=== PATIENT | male | born 1935 | race Caucasian/White ===

== ENCOUNTER 2017-09-18 09:34 | Inpatient (IN) | payer MEDICARE, MEDICAID ==
[~2017-09-18] VITALS: Ht 172.7 cm; Wt 79.4 kg
--- NOTE | 2017-09-18 09:27 | Emergency Room Report ---
History of Present Illness General Chief Complaint: Dizziness Source: Patient, EMS Present Illness HPI Patient is 81-year-old male who presented after near syncopal episode while at [employer]. The patient poorly did not eat breakfast. He had prior history of hypertension and been taking lisinopril as well as glyburide. The patient had adequate blood sugar when checked by EMS. Patient denies prior cardiac disease. The patient was noted be orthostatic by EMS and was started on IV fluids.The patient denies any episodes recent vomiting or diarrhea. He denies any abdominal pain at this time. He denies any chest discomfort.He reports not eating breakfast.The patient was standing at the time of feeling dizzy. The patient had been taking his blood pressure medications included lisinopril as well as atenolol Allergies: Coded Allergies: No Known Allergies (Verified , 02/27/06) Patient History Past Medical History: see triage record Reviewed Nursing Documentation: PMH: Agreed; PSxH: Agreed Review of Systems All Other Systems: negative except mentioned in HPI Physical Exam Vital Signs Date Time Temp Pulse Resp B/P (MAP) Pulse Ox O2 Delivery O2 Flow Rate FiO2 09/18/17 09:19 97.6 59 18 114/68 100 Room Air 97.5 Sp02 EP Interpretation: reviewed, normal General Appearance: normal inspection, well appearing, no apparent distress, alert, GCS 15, non-toxic, Chronically Ill Head: atraumatic ENT: normal ENT inspection, hearing grossly normal, normal voice Neck: normal inspection, full range of motion, supple, no bony tend Respiratory: normal inspection, lungs clear, normal breath sounds, no respiratory distress, no retraction, no wheezing Cardiovascular #1: regular rate, rhythm, no edema Gastrointestinal: normal inspection, normal bowel sounds, non tender, soft, no guarding, no hernia Genitourinary: no CVA tenderness Musculoskeletal: normal inspection, back normal, normal range of motion Neurologic: normal inspection, alert, oriented x3, responsive, priming mixture carrier III-XII nml as tested, speech normal Psychiatric: normal inspection, judgement/insight normal, mood/affect normal Skin: normal inspection, normal color, no rash Medical Decision Making Diagnostic Impression: Primary Impression: Syncope, near Additional Impressions: Hx of CABG Diabetes Dehydration, mild ER Course Patient presented for near syncope. Differential diagnosis included but was not limited to arrhythmia, orthostatic hypotension, hypovolemia, vasovagal, anemia among others.Because of complexity of patient's case laboratory testing and imaging studies were ordered. EKG interpreted by me showed normal sinus rhythm with a rate of 60 with right bundle-branch block with lateral T-wave inversion. The patient was noted to have CABG approximate 9 years ago.The patient was started on IV fluids. The patient tolerated by mouth food with the some improvement.The patient was discussed with Dr. Jose Petit for inpatient management due to primary care physician Labs Test 09/18/17 09:40 White Blood Count 7.8 K/UL (4.8-10.8) Red Blood Count 4.58 M/UL (4.70-6.10) Hemoglobin 14.3 G/DL (14.2-18.0) Hematocrit 41.7 % (42.0-52.0) Mean Corpuscular Volume 91 FL (80-99) Mean Corpuscular Hemoglobin 31.1 PG (27.0-31.0) Mean Corpuscular Hemoglobin Concent 34.2 G/DL (32.0-36.0) Red Cell Distribution Width 11.2 % (11.6-14.8) Platelet Count 170 K/UL (150-450) Mean Platelet Volume 5.8 FL (6.5-10.1) Neutrophils (%) (Auto) 73.1 % (45.0-75.0) Lymphocytes (%) (Auto) 17.8 % (20.0-45.0) Monocytes (%) (Auto) 6.5 % (1.0-10.0) Eosinophils (%) (Auto) 1.3 % (0.0-3.0) Basophils (%) (Auto) 1.3 % (0.0-2.0) Prothrombin Time 10.4 SEC (9.30-11.50) Prothromb Time International Ratio 1.0 (0.9-1.1) Activated Partial Thromboplast Time 23 SEC (23-33) Sodium Level 138 MMOL/L (136-145) Potassium Level 4.4 MMOL/L (3.5-5.1) Chloride Level 104 MMOL/L (98-107) Carbon Dioxide Level 24 MMOL/L (21-32) Anion Gap 10 mmol/L (5-15) Blood Urea Nitrogen 19 mg/dL (7-18) Creatinine 1.1 MG/DL (0.55-1.30) Estimat Glomerular Filtration Rate mL/min (>60) Glucose Level 175 MG/DL (74-106) Calcium Level 8.9 MG/DL (8.5-10.1) Total Bilirubin 0.6 MG/DL (0.2-1.0) Aspartate Amino Transf (AST/SGOT) 13 U/L (15-37) Alanine Aminotransferase (ALT/SGPT) 18 U/L (12-78) Alkaline Phosphatase 61 U/L (46-116) Total Creatine Kinase 70 U/L (26-308) Creatine Kinase MB 1.1 NG/ML (0.0-3.6) Creatine Kinase MB Relative Index 1.5 Troponin I 0.007 ng/mL (0.000-0.056) Total Protein 7.2 G/DL (6.4-8.2) Albumin 3.5 G/DL (3.4-5.0) Globulin 3.7 g/dL Albumin/Globulin Ratio 0.9 (1.0-2.7) EKG Diagnostic Results Rate: normal Rhythm: NSR ST Segments: other - twave inversion lateral Last Vital Signs Date Time Temp Pulse Resp B/P (MAP) Pulse Ox O2 Delivery O2 Flow Rate FiO2 09/18/17 09:19 97.6 59 18 114/68 100 Room Air 97.5 Status: improved Disposition: ADMITTED INPATIENT Condition: Anibal José MD September 18, 2017 09:27
[2017-09-18] MEDS ORDERED: LISINOPRIL5 MG ORAL (09:38)
[2017-09-18 09:57] VITALS: BP 156/69
[2017-09-18 10:27] LABS: BASOPHILS % (AUTO) 1.3 % (0.0-2.0); EOSINOPHILS % (AUTO) 1.3 % (0.0-3.0); HEMATOCRIT 41.7 % (42.0-52.0); HEMOGLOBIN 14.3 G/DL (14.2-18.0); LYMPHOCYTES % (AUTO) 17.8 % (20.0-45.0); MEAN CORPUSCULAR VOLUME 91 FL (80-99); MONOCYTES % (AUTO) 6.5 % (1.0-10.0); NEUTROPHILS % (AUTO) 73.1 % (45.0-75.0); PLATELET COUNT 170 K/UL (150-450); RED BLOOD COUNT 4.58 M/UL (4.70-6.10); RED CELL DISTRIBUTION WIDTH 11.2 % (11.6-14.8); WHITE BLOOD COUNT 7.8 K/UL (4.8-10.8)
[2017-09-18 10:35] LABS: ANION GAP 10 mmol/L (5-15); BLOOD UREA NITROGEN 19 mg/dL (7-18); CALCIUM 8.9 MG/DL (8.5-10.1); CARBON DIOXIDE 24 MMOL/L (21-32); CHLORIDE 104 MMOL/L (98-107); CREATININE 1.1 MG/DL (0.55-1.30); POTASSIUM 4.4 MMOL/L (3.5-5.1); SODIUM 138 MMOL/L (136-145)
[2017-09-18 10:49] LABS: ALANINE AMINOTRANSFERASE 18 U/L (12-78); ALBUMIN 3.5 G/DL (3.4-5.0); ALBUMIN/GLOBULIN RATIO 0.9 (1.0-2.7); ALKALINE PHOSPHATASE 61 U/L (46-116); ASPARTATE AMINO TRANSFERASE 13 U/L (15-37); BILIRUBIN,TOTAL 0.6 MG/DL (0.2-1.0); CKMB 1.1 NG/ML (0.0-3.6); CREATINE KINASE 70 U/L (26-308)
[2017-09-18 11:16] LABS: APPEARANCE,URINE SLIGHTLY CLOUDY; BILIRUBIN, URINE NEGATIVE (NEGATIVE); COLOR,URINE PALE YELLOW; GLUCOSE, URINE (UA) NEGATIVE (NEGATIVE); KETONES,URINE 1+ (NEGATIVE); LEUKOCYTE ESTERASE ,URINE 3+ (NEGATIVE); NITRITE,URINE POSITIVE (NEGATIVE); PH,URINE 7 (4.5-8.0); PROTEIN,URINE 1+ (NEGATIVE); UROBILINOGEN,URINE NORMAL MG/DL (0.0-1.0)
[2017-09-18] MEDS ORDERED: cefTRIAXone 1 GM in NS 55 ML IVPB ONE (11:30)
[2017-09-18 11:56] VITALS: BP 156/82
[2017-09-18] MEDS: Piperacillin/Tazobactam 3.375 GM in NS 110 ML IVPB SCH ×2 (15:54→15:55)
[2017-09-18] MEDS: NovoLOG Insulin Flexpen SUBQ SCH ×2 (17:00→21:00)
[2017-09-18 20:00] VITALS: BP 149/75
[2017-09-18] MEDS: Heparin 5000 units/ml inj SUBQ SCH (21:00)
[2017-09-19] VITALS: BP 156/83
[2017-09-19 04:00] VITALS: BP 181/86
[2017-09-19] MEDS: NovoLOG Insulin Flexpen SUBQ SCH ×4 (06:30→21:00)
[2017-09-19 08:00] VITALS: BP 179/93
[2017-09-19] MEDS: Piperacillin/Tazobactam 3.375 GM in NS 110 ML IVPB SCH ×3 (08:14→23:33)
[2017-09-19] MEDS: Heparin 5000 units/ml inj SUBQ SCH ×2 (08:18→21:07)
[2017-09-19] MEDS ORDERED: Lisinopril 2.5mg tab ORAL SCH (09:00)
[2017-09-19 10:06] LABS: CHOLESTEROL 145 MG/DL (< 200); HDL CHOLESTEROL 36 MG/DL (40-60); TRIGLYCERIDES 138 MG/DL (30-150)
[2017-09-19 12:00] VITALS: BP 174/86
--- NOTE | 2017-09-19 12:15 | History and Physical Report ---
DATE OF ADMISSION: 09/18/2017 CHIEF COMPLAINT: Near syncope. HISTORY OF PRESENT ILLNESS: The patient is a pleasant 81-year-old male, well known to me. He has a history of ischemic cardiomyopathy, status post CABG, hypertension, diabetes, who presented from the custodial facility after he had a near syncopal episode while at [employer]. The patient apparently felt dizzy and diaphoretic. Paramedics were called and his blood sugar was noted to be normal. He was brought to the emergency room. On evaluation there, his EKG showed a right bundle-branch block. Blood pressure was stable. Blood sugar was normal. He did have urinary tract infection. He had an elevated lactic acid level. The patient remained somewhat weak and it was felt that the patient thus be admitted for hydration and antibiotic therapy. PAST MEDICAL HISTORY: As above. PAST SURGICAL HISTORY: Includes CABG. CURRENT MEDICATIONS: Reconciled and reviewed ALLERGIES: None. FAMILY HISTORY: None. SOCIAL HISTORY: Negative for tobacco, ethanol, or drugs. REVIEW OF SYSTEMS: GENERAL: No fevers or chills. HEENT: No headaches or visual changes. Positive dizziness. CARDIOPULMONARY: No chest pain or shortness of breath. GASTROINTESTINAL: No nausea or vomiting. GENITOURINARY: No urgency or frequency. No hematuria. MUSCULOSKELETAL: No joint pain or swelling. NEUROLOGIC: No history of seizures. PHYSICAL EXAMINATION: VITAL SIGNS: Temperature 97.9, pulse 76, respirations 20, and blood pressure 149/75. GENERAL: The patient is well developed, no apparent distress. Awake, alert, and oriented x4. NECK: Supple. There is no lymphadenopathy. No jugular venous distention. HEART: Regular rate and rhythm without murmurs, rubs, or gallops. LUNGS: Clear to auscultation bilaterally. ABDOMEN: Soft, nontender, and nondistended. EXTREMITIES: Without clubbing, cyanosis, or edema. LABORATORY AND DIAGNOSTIC DATA: Sodium 138, BUN 19, and creatinine was 1.1. Lactic acid was 2.4. White count was 8, hemoglobin 14, hematocrit 41, and platelet count of 170. Glucose 175. UA showed 60 to 80 WBCs. EKG showed right bundle-branch block. ASSESSMENT: This is a pleasant male, admitted with complaint of near syncopal episodes suspect multifactorial secondary to dehydration, possible hypoglycemia and urinary tract infection. PLAN: Admit to monitored bed. Repeat troponin in the morning. IV hydration. Intravenous antibiotics. Urinary tract infection. Check renal ultrasound. PT and OT evaluations. We will monitor orthostatics. Continue outpatient cardiac regimen. Jose Petit M.D. DR: DUSTIN JOB#: [id number] CC:
[2017-09-19] MEDS: HydrALAZINE 25mg tab ORAL PRN (14:12)
[2017-09-19 16:00] VITALS: BP 131/81
[2017-09-19 20:00] VITALS: BP 156/81
--- NOTE | 2017-09-19 23:00 | Consultation ---
DATE OF CONSULTATION: 09/19/2017 CARDIOLOGY CONSULTATION CONSULTING PHYSICIAN: Jensen Zuniga M.D. REQUESTING PHYSICIAN: Jose Petit M.D. REASON: Syncope. HISTORY OF PRESENT ILLNESS: This is an 81-year-old male. He has a known history of ischemic heart disease and is status post coronary artery bypass graft over 10 years ago. He also is a diabetic on oral therapy and has a history of hypertensive heart disease. He was at [employer] yesterday as usual in the morning, although he states he did not eat breakfast. During this service, he started feeling dizzy, diaphoretic, lightheaded, and apparently passed out. Paramedics were summoned. His initial glucose level was noted to be normal. In the emergency room, he also had a stable blood pressure and had a baseline EKG revealing sinus rhythm, inferior infarction of indeterminate age, and a right bundle-branch block. Compared to prior EKGs, these changes are not new. The patient was also noted to have an elevated lactic acid level. PAST MEDICAL HISTORY: Coronary artery disease, history of coronary artery bypass graft, hypertension, type 2 diabetes mellitus, and hypertriglyceridemia. ALLERGIES: None. MEDICATIONS: Prior to admission, reviewed and reconciled. FAMILY HISTORY: Noncontributory. SOCIAL HISTORY: Negative for smoking, alcohol, or substance abuse. REVIEW OF SYSTEMS: He has not had any fevers or chills. There is no history of retinopathy. He is hard of hearing. He has not had any seizures or strokes in the past. There is no history of prostate cancer. He does have mild BPH. He has arthritis and degenerative disk disease, but functions independently. He has not noted any change in bowel habits. There is no history of melena or bright red blood per rectum. The patient has no history of asthma or blood clots in the legs. The patient has not had any recent change in his exercise capacity. There is no history of malignant or sustained arrhythmias or congestive heart failure. PHYSICAL EXAMINATION: VITAL SIGNS: Afebrile, blood pressure 149/75, pulse 76, and respirations 20. HEENT: Normocephalic and atraumatic. Conjunctivae pink. Sclerae are anicteric. Oropharynx is clear. Mucous membranes moist. NECK: Supple. No bruits. No jugular venous distention. LUNGS: Clear. CARDIAC: Regular rhythm and rate. Normal S1, S2. There is a fourth heart sound. There is a 1/6 systolic murmur at apex. ABDOMEN: Soft, nontender EXTREMITIES: Good pulses. No edema. NEUROLOGIC: Nonfocal. LABORATORY AND DIAGNOSTIC DATA: monitoring engineer reveals sinus rhythm with occasional premature ventricular contraction nonsustained. Urinalysis 60 to 80 white cells. White count 8, hemoglobin 14. BUN 19, creatinine 1.1. Lactic acid 2.4. Troponin levels 0.007 and 0.028. LDL cholesterol is 85. Hemoglobin A1c is 7.3. IMPRESSION: 1. Near syncope, possibly due to hypovolemia and dehydration in the setting of early infection. 2. Urinary tract infection. 3. Lactic acidosis. 4. Ischemic cardiomyopathy with no signs of acute coronary syndrome. 5. Nonsustained ventricular ectopy. 6. Hypertensive heart disease with controlled blood pressure. 7. Type 2 diabetes mellitus with no signs of hypoglycemia noted on available records. PLAN: 1. Continue cautious hydration. 2. Cardiac monitoring. 3. Repeat lactic acid and troponin levels. 4. Empiric antibiotics. 5. Glucose monitoring. 6. Check orthostatic blood pressure. 7. Maintain anti-platelet therapy. 8. We will consider noninvasive assessment of coronary flow reserve as an outpatient if remains clinically stable with no signs of acute ischemia. Jensen Zuniga M.D. DR: RITA JOB#: [id number] CC:
[2017-09-20] VITALS: BP 152/77
[2017-09-20 04:00] VITALS: BP 153/72
[2017-09-20] MEDS: NovoLOG Insulin Flexpen SUBQ SCH (06:24)
[2017-09-20] MEDS: Piperacillin/Tazobactam 3.375 GM in NS 110 ML IVPB SCH (07:26)
[2017-09-20] MEDS: HydrALAZINE 25mg tab ORAL PRN (07:26)
[2017-09-20 08:00] VITALS: BP 182/81
[2017-09-20] MEDS ORDERED: LISINOPRIL20 MG ORAL (08:17)
[2017-09-20] MEDS ORDERED: JANUVIA100 MG ORAL (08:17)
[2017-09-20] MEDS: Heparin 5000 units/ml inj SUBQ SCH (08:29)
[2017-09-20 09:00] VITALS: BP 130/87
[2017-09-20] MEDS ORDERED: Lisinopril 20mg tab ORAL SCH (09:00)
[2017-09-20 11:36] LABS: ALANINE AMINOTRANSFERASE 17 U/L (12-78); ALBUMIN 3.4 G/DL (3.4-5.0); ALBUMIN/GLOBULIN RATIO 0.9 (1.0-2.7); ALKALINE PHOSPHATASE 60 U/L (46-116); ANION GAP 10 mmol/L (5-15); ASPARTATE AMINO TRANSFERASE 11 U/L (15-37); BILIRUBIN,TOTAL 0.7 MG/DL (0.2-1.0); BLOOD UREA NITROGEN 17 mg/dL (7-18); CALCIUM 9.3 MG/DL (8.5-10.1); CARBON DIOXIDE 26 MMOL/L (21-32); CHLORIDE 104 MMOL/L (98-107); CREATININE 1.1 MG/DL (0.55-1.30); POTASSIUM 3.6 MMOL/L (3.5-5.1); SODIUM 140 MMOL/L (136-145)
--- NOTE | 2017-09-21 02:00 | Discharge Summary ---
DATE OF ADMISSION: 09/18/2017 DATE OF DISCHARGE: 09/20/2017 ADMISSION DIAGNOSES: 1. Syncope. 2. Urinary tract infection. 3. Dehydration. 4. Hypertensive urgency. DISCHARGE DIAGNOSES: 1. Syncope. 2. Urinary tract infection. 3. Dehydration. 4. Hypertensive urgency. HOSPITAL COURSE: The patient was a pleasant male with a history of ischemic cardiomyopathy, diabetes, who presented with a near syncopal episode. He was noted to have urinary tract infection. He received IV antibiotics. On discharge, he was improved. His dizziness had resolved. He will be discharged home with oral antibiotic therapy for an additional week. DISCHARGE MEDICATIONS: Please see discharge medication list for discharge medications. DIET: Cardiac diabetic diet. ACTIVITY: Ad-reddy. Jose Petit M.D. DR: GURINDER JOB#: [id number] CC:
--- NOTE | 2017-09-21 09:30 | Progress Note ---
DATE: 09/20/2017 CARDIOLOGY PROGRESS NOTE SUBJECTIVE: No chest pain. No shortness of breath. No loss of consciousness. The patient is ambulatory with no restrictions from his baseline. OBJECTIVE: VITAL SIGNS: Blood pressure 182/87, heart rate 81, and respiratory rate 20. LUNGS: Clear. CARDIAC: Regular. ABDOMEN: Soft. EXTREMITIES: No edema. LABORATORY DATA: Notable for potassium 3.6, BUN 17, creatinine 1.1, glucose 131. Lactic acid 1.5. Troponin normal. White count is . IMPRESSION: 1. Syncopal episode likely precipitated by hypovolemia in the setting of acute urinary tract infection. 2. Labile hypertension. 3. Ischemic cardiomyopathy with stable angina. PLAN: 1. Complete antimicrobials. 2. Maintain adequate hydration. 3. Continue baseline diabetic regimen and have regular meal schedule. 4. Titrate antihypertensive therapy. If blood pressure can be improved, the patient can be discharged home to complete recovery. Jensen Zuniga M.D. DR: NGUYỄN JOB#: [id number] CC:
== END 2017-09-20 11:10 | disposition home or self-care (01) | DRG 690 ==
LOC: EDBD 09:34 → EMR 10:00 → EDBEDREQSVC 10:56 → 2E 11:07 → OBSVTOIN 11:07 → EDBEDREQ 11:43 → 2E 14:57
DX: N39.0 Urinary tract infection, site not specified (principal); R55 Syncope and collapse; E86.0 Dehydration; I16.0 Hypertensive urgency; E86.1 Hypovolemia; I45.10 Unspecified right bundle-branch block; I25.118 Atherosclerotic heart disease of native coronary artery with other forms of angina pectoris; E78.1 Pure hyperglyceridemia; Z95.1 Presence of aortocoronary bypass graft; E11.9 Type 2 diabetes mellitus without complications; N40.0 Benign prostatic hyperplasia without lower urinary tract symptoms; M19.90 Unspecified osteoarthritis, unspecified site; I11.9 Hypertensive heart disease without heart failure; I25.5 Ischemic cardiomyopathy; I49.3 Ventricular premature depolarization
CPT/HCPCS: 36415; 71045; 80053; 80061; 81003; 82550; 82553; 82962; 83036; 83605; 84443; 84484; 85025; 85610; 85730; 86850; 86900; 86901; 87040; 87086; 87181; 93005; 99285; J1815